=== PATIENT | male | born 1995 | race Caucasian/White ===

== ENCOUNTER 2023-12-06 20:20 | Emergency (ER) | payer SELFPAY ==
[~2023-12-06] VITALS: Ht 172.7 cm; Wt 74.8 kg
[2023-12-06] MEDS ORDERED: AVPAK AZITHROM250 M1 PO (20:48)
[2023-12-06] MEDS ORDERED: PREDNISONE20 M1 PO (20:48)
[2023-12-06] MEDS ORDERED: AZITHROMYCIN 250 MG TAB PO ONE (20:50)
[2023-12-06] MEDS ORDERED: methylPREDNISolone sod succ 125 MG VIAL IM ONE (20:50)
== END 2023-12-06 21:06 | disposition home or self-care (01) ==
LOC: ED 20:20
DX: J20.9 Acute bronchitis, unspecified (principal); J45.909 Unspecified asthma, uncomplicated

== ENCOUNTER 2024-03-23 17:27 | Emergency (ER) | payer SELFPAY ==
[~2024-03-23] VITALS: Ht 172.7 cm; Wt 72.6 kg
[~2024-03-23 17:27] MED LIST: AVPAK AZITHROM250 M1 PO; PREDNISONE20 M1 PO
[2024-03-23 17:58] LABS: BASO % 0.4 % (0.0-1.0); EOS # 0.1 10*3/uL (0.0-0.4); EOS % 1.2 % (1.0-4.0); HEMATOCRIT 41.1 % (42.0-52.0); MEAN CELL VOLUME 87.3 fl (80.0-94.0); MEAN CORPUSCULAR HGB 29.5 pg (27.0-31.0); MEAN CORPUSCULAR HGB CONC 33.8 g/dl (33.0-37.0); MONO # 0.5 10*3/uL (0.1-1.0); MONO % 6.6 % (3.0-9.0); NEUT # 5.3 10*3/uL (2.3-7.9); NEUT % 66.1 % (47.0-73.0); PLATELET COUNT AUTOMATED 259 10*3/uL (130-400); RED BLOOD COUNT 4.71 10*6/uL (4.50-5.90); RED CELL DISTRI WIDTH 11.7 % (0-14.5); WHITE BLOOD COUNT 8.1 10*3/uL (4.8-10.8)
[2024-03-23 18:09] LABS: BILIRUBIN Negative (Negative); BLOOD Negative (Negative); CLARITY Clear (Clear); COLOR Yellow (Yellow); GLUCOSE Negative (Negative); KETONE Negative (Negative); LEUKO ESTERASE Trace (Negative); NITRITE Negative (Negative); PH 7.5 (4.5-8.0); SPECIFIC GRAVITY 1.015 (1.001-1.030); UROBILINOGEN 0.2 E.U./dl (0.0-1.0)
[2024-03-23 18:19] LABS: BUN 9 mg/dl (9-23); CHLORIDE 104 mmol/L (98-107); POTASSIUM 3.8 mmol/L (3.4-5.1)
[2024-03-23 18:20] LABS: RBC 0-2 rbc/hpf (0-2)
== END 2024-03-23 18:59 | disposition home or self-care (01) ==
LOC: ED 17:27
PROVIDERS: Nurse Practitioner Family
DX: R30.0 Dysuria (principal); J45.909 Unspecified asthma, uncomplicated